=== PATIENT | female | born 1980 | race Caucasian/White ===

== ENCOUNTER 2017-02-26 09:25 | Day surgery (SDC) | payer BC, OTHER ==
[2017-02-26 10:31] VITALS: BP 128/83; TEMP 97.9; BMI 37.0
[2017-02-26 11:20] LABS: Bilirubin Negative (Negative); Blood, Urine Trace (Negative); Glucose, Urine (Dipstick) Negative (Negative); Ketone, Urine Trace mg/dL (Negative); Nitrite Negative (Negative); Protein, Urine (Dipstick) Negative (Neg-Trace); Urobilinogen 0.2 mg/dL (0.2-1.0)
[2017-02-26 11:28] LABS: #Eosinphils 0.1 thou/uL (0.0-0.7); #Lymphocytes 1.7 thou/uL (1.20-3.40); #Monocytes 1.1 thou/uL (0.11-0.59); #Neutrophils 12.6 thou/uL (1.40-6.50); %Basophils 0.3 % (0.0-1.0); %Eosinophils 0.6 % (0.0-10.0); %Lymphocytes 11.2 % (21.0-51.0); %Monocytes 7.2 % (0.0-10.0); Hematocrit 30.8 % (36.0-47.0); Mean Platelet Volume 8.1 fL (7.4-10.4); Red Blood Cell (RBC) Count 3.86 mill/uL (4.20-5.40); White Blood Cell (WBC) Count 15.6 thou/uL (4.8-10.8)
[2017-02-26 11:28] LABS: Bacteria/HPF Rare-Few HPF (None Seen); Hyaline Casts/LPF NONE SEEN LPF (0-3 Hyaline); RBC/HPF 0-3 HPF (0-3); Squamous Epithelial 0-3 HPF (0-3); WBC/HPF None Seen HPF (0-3)
[2017-02-26 11:54] LABS: ALT (SGPT) 13 U/L (8-55); AST (SGOT) 16 U/L (5-34); Alkaline Phosphatase 132 U/L (40-150); Anion Gap 9 mmol/L (10-20); BUN (Urea Nitrogen) 6 mg/dL (7.0-18.7); Bilirubin, Total 0.3 mg/dL (0.2-1.2); Calc. Creatinine Clearance 197 mL/min (70-130); Calcium 9.1 mg/dL (7.8-10.44); Carbon Dioxide 23 mmol/L (22-29); Chloride 107 mmol/L (98-107); Estimated GFR-MDRD Greater than 90; Globulin 2.8 g/dL (2.4-3.5); Protein, Total 5.9 g/dL (6.0-8.3)
== END 2017-02-26 11:30 | disposition home or self-care (01) ==
LOC: L&D/OP 09:25
PROVIDERS: ATTEND Obstetrics & Gynecology
DX: O99.89 Other specified diseases and conditions complicating pregnancy, childbirth and the puerperium (principal); R03.0 Elevated blood-pressure reading, without diagnosis of hypertension; O12.00 Gestational edema, unspecified trimester; Z79.82 Long term (current) use of aspirin; Z79.899 Other long term (current) drug therapy; Z88.1 Allergy status to other antibiotic agents
CPT/HCPCS: 36415; 80053; 81003; 81015; 85025

== ENCOUNTER 2017-03-16 21:00 | Inpatient (IN) | payer BC, OTHER ==
[2017-03-16] MEDS ORDERED: LR 500 ML/Oxytocin 10 units 500 ML IV SCH (21:30)
[2017-03-16] MEDS ORDERED: LR / Pitocin 40 units/1000 ml 1,000 ML IV PRN (21:30)
[2017-03-16] MEDS ORDERED: Acetaminophen/Codeine 30-300mg Tablet PO PRN ×2 (21:30)
[2017-03-16] MEDS ORDERED: Ibuprofen 800 MG TAB PO PRN (21:30)
[2017-03-16] MEDS ORDERED: Lidocaine 1% (PF) 30 ML VIAL SC PRN (21:30)
[2017-03-16] MEDS ORDERED: Promethazine HCl 25 MG/ML VIAL IM PRN (21:30)
[2017-03-16] MEDS ORDERED: Ondansetron HCl/PF 4 MG/2 ML Vial IVP PRN (21:30)
[2017-03-16] MEDS: Lactated Ringer's 1,000 ML IV SCH (21:30)
[2017-03-16 21:50] VITALS: BMI 37.9
[2017-03-16] MEDS: LR 500 ML/Oxytocin 10 units 500 ML IV SCH (22:20)
[2017-03-16 22:30] LABS: Hematocrit 32.2 % (36.0-47.0); Mean Platelet Volume 8.5 fL (7.4-10.4); Red Blood Cell (RBC) Count 3.84 mill/uL (4.20-5.40); White Blood Cell (WBC) Count 13.3 thou/uL (4.8-10.8)
[2017-03-16 22:51] LABS: ALT (SGPT) 14 U/L (8-55); AST (SGOT) 16 U/L (5-34); Alkaline Phosphatase 147 U/L (40-150); Anion Gap 17 mmol/L (10-20); BUN (Urea Nitrogen) 9 mg/dL (7.0-18.7); Bilirubin, Total 0.3 mg/dL (0.2-1.2); Calc. Creatinine Clearance 167 mL/min (70-130); Calcium 8.7 mg/dL (7.8-10.44); Carbon Dioxide 16 mmol/L (22-29); Chloride 107 mmol/L (98-107); Estimated GFR-MDRD Greater than 90; Globulin 2.4 g/dL (2.4-3.5); Protein, Total 5.5 g/dL (6.0-8.3)
[2017-03-17] MEDS ORDERED: diphenhydrAMINE 50 MG/ML VIAL ONE (03:15)
[2017-03-17] MEDS ORDERED: Fentanyl 4 mcg/Marc 0.1% Cadd 100 ML ONE (05:21)
[2017-03-17] MEDS: Lactated Ringer's 1,000 ML IV SCH ×3 (06:02→16:24)
[2017-03-17] MEDS ORDERED: ePHEDrine/0.9% NaCl/PF SYRINGE 50 mg/10 ml SLOW IVP PRN (06:21)
[2017-03-17] MEDS ORDERED: Ondansetron HCl/PF 4 MG/2 ML Vial IVP PRN ×2 (06:21→22:32)
[2017-03-17] MEDS ORDERED: Acetaminophen 325 MG TAB PO PRN (06:21)
[2017-03-17] MEDS ORDERED: Naloxone HCl 0.4 mg/ml Vial IVP PRN ×2 (06:21)
[2017-03-17] MEDS ORDERED: Promethazine HCl 25 MG/ML VIAL IM PRN (06:21)
[2017-03-17] MEDS ORDERED: Eucerin (Mineral Oil/Petrolatum,White) 30 gm Jar TOP PRN (06:21)
[2017-03-17] MEDS ORDERED: Lactated Ringer's 500 ML IV PRN (06:21)
[2017-03-17] MEDS ORDERED: diphenhydrAMINE 50 MG/ML VIAL IVP PRN (06:21)
[2017-03-17] MEDS ORDERED: Communication Order-Pharmacy FS SCH (06:30)
--- NOTE | 2017-03-17 08:35 | PDOC.LDHP ---
Labor and Delivery H&P Chief complaint: scheduled induction (for PIH 37 weeks) HPI: Pt is a 36yo G1 here for scheduled IOL for PIH without severe features managed outpt since 33 weeks. Also A2GDM this preg. Current gestational age (weeks): 37 Due date: 04/05/17 Dating criteria: last menstrual period, first trimester ultrasound Grav: 1 Para: 0 Current complications: gestational diabetes (metformin 500mg QPM) Abnormal US findings: No Current medications: pre-alfred vitamins, other (metformin 500mg QPM) Previous surgical history: other (bunionectomy) Allergies/Adverse Reactions: Allergies Allergy/AdvReac Type Severity Reaction Status Date / Time doxycycline Allergy Verified 03/16/17 21:40 minocycline Allergy Verified 03/16/17 21:40 Social history: none - Physical Exam Abnormal vital signs: systolic 140-160, isolated severe range noted over night General: NAD, resting Heart: RRR Lungs: nonlabored breathing Abdomen: gravid Extremeties: pitting edema (+1) FHT: category 1 [place] contractions every: 3 - Vaginal Exam cm dilated: 5 Effacement: 50% Station: -1 - OB Labs Blood type: A RH: negative Antibody Screen: negative HIV: negative RPR: negative HEPSAg: negative 1 hour GCT: positive 3 hour GTT: positive GBS: negative Rubella: non-immune - Assessment L&D Assessment: medically indicated induction - Plan Plan: admit to L&D, cervical ripening, labor augmentation if indicated, informed consent obtained, anesthesia consult for pain management -: A/P: 36yo G1 @ 37.2 IOL for PIH. S/P Cook Balloon placement, removal, and AROM. Pitocin for IOL. FHT reassuring.
[2017-03-17] MEDS ORDERED: Bupivacaine/Epinephrine 0.25% 30 ML VIAL ONE (11:11)
[2017-03-17] MEDS ORDERED: Lidocaine 2% MPF 10 ML AMP (For Epidural Use) ONE (11:11)
[2017-03-17] MEDS: Fentanyl 4mcg/Marcaine 0.1% Cassette 100 ML EPIDURAL SCH ×3 (11:33→20:09)
--- NOTE | 2017-03-17 12:59 | PDOC.LDPN ---
Labor & Delivery Progress Note - Subjective Subjective: comfortable - Objective Vital signs reviewed and normal: yes General: breathing through contractions Dilation: 5 Effacement: 90% Station: -1 FHT: category 1 [place] contractions every: 2 - Assessment (1) 37 weeks gestation of Code(s): Z3A.37 - 37 WEEKS GESTATION OF Current Visit: Yes Status : Acute (2) Preeclampsia Code(s): O14.90 - UNSPECIFIED PRE-ECLAMPSIA, UNSPECIFIED TRIMESTER Current Visit: Yes Status: Acute Plan: pitocin for augmentation
[2017-03-17] MEDS: LR 500 ML/Oxytocin 10 units 500 ML IV SCH (14:59)
--- NOTE | 2017-03-17 16:57 | PDOC.LDPN ---
Labor & Delivery Progress Note - Subjective Subjective: comfortable - Objective Vital signs reviewed and normal: yes (occ mild range) General: resting Dilation: 7 Effacement: 90% Station: -1 FHT: category 1 [place] contractions every: 3 - Assessment (1) 37 weeks gestation of Code(s): Z3A.37 - 37 WEEKS GESTATION OF Current Visit: Yes Status : Acute (2) Preeclampsia Code(s): O14.90 - UNSPECIFIED PRE-ECLAMPSIA, UNSPECIFIED TRIMESTER Current Visit: Yes Status: Acute Plan: continue plan of care, pitocin for augmentation -: A/P: IOL @ 37 weeks for PIH. Slow cervical change but pitocin turned off for prolonged deceleration approx 1600, notified when presenting to unit for pt exam and eval at 1700. FHT now reassuring, pitocin at 10mu/min but ctx not adequate at this time, were prior. Continue plan of care, if pitocin DC'd again due to distress and remote from delivery CS may be indicated.
[2017-03-17] MEDS: LR / Pitocin 40 units/1000 ml 1,000 ML IV SCH (22:02)
--- NOTE | 2017-03-17 22:19 | PDOC.OPDEL ---
OB Operative/Delivery Note Delivery Dr/Surgeon: Yury Pre-Delivery Diagnosis: medically indicated induction (for preeclampsia) Weeks gestation: 37 Anesthesia: epidural - Findings A Sex: male Weight: 8 lb 10 oz - 1 min: 8 - 5 min: 9 - Additional Findings/Plan Placenta delivered: spontaneous Repaired Obstetrical Laceration: 2nd degree Estimated blood loss: 300ml Compilations/Other Findings: Loose nuchal reduced at the perineum, shoulder dystocia resolved w suprapubic pressure and McRobert's maneuver->delivery of anterior (left) shoulder, good movement of both UE after delivery Post delivery plan: routine recovery
[2017-03-17] MEDS ORDERED: Milk Of Magnesia 30 ML UDCUP PO PRN (22:32)
[2017-03-17] MEDS ORDERED: Lanolin Ointment 7 GM TUBE TOP PRN (22:32)
[2017-03-17] MEDS ORDERED: Preparation H Ointment 28 GM TUBE PR PRN (22:32)
[2017-03-17] MEDS ORDERED: Acetaminophen/Codeine 30-300mg Tablet PO PRN ×2 (22:32)
[2017-03-17] MEDS ORDERED: diphenhydrAMINE 25 MG CAP PO PRN (22:32)
[2017-03-17] MEDS ORDERED: Bisacodyl 10 MG SUPP PR PRN (22:32)
[2017-03-17] MEDS ORDERED: Benzocaine/Menthol 20-0.5% 60 ML CAN TOP PRN (22:32)
[2017-03-18] MEDS: Ibuprofen 800 MG TAB PO SCH ×4 (02:07→23:54)
[2017-03-18] MEDS: LR / Pitocin 40 units/1000 ml 1,000 ML IV SCH (02:07)
[2017-03-18 05:47] LABS: Hematocrit 31.3 % (36.0-47.0); Mean Platelet Volume 8.3 fL (7.4-10.4); Red Blood Cell (RBC) Count 3.68 mill/uL (4.20-5.40); White Blood Cell (WBC) Count 21.7 thou/uL (4.8-10.8)
[2017-03-18] MEDS: Ferrous Sulfate 325 MG TAB PO SCH ×2 (08:37→17:24)
[2017-03-18] MEDS: Prenatal Vitamin 1 TAB PO SCH (08:38)
[2017-03-18] MEDS: Docusate Calcium (SURFAK) 240 MG CAP PO SCH ×2 (08:38→21:10)
[2017-03-18] MEDS ORDERED: Adacel (T-DAP) 0.5 ML VIAL IM ONE (09:00)
--- NOTE | 2017-03-18 09:01 | PDOC.PP ---
Post Progress Note Post Day #: 1 Subjective: Doing well, no dizziness, SOB, chest pain, ambulating w/o difficulty. PO intake tolerated: yes Flatus: yes Ambulation: yes Vital Signs (12 hours) Temp Pulse Resp BP 03/18/17 08:54 97.8 F 94 20 120/77 03/18/17 04:35 98.1 F 97 16 120/75 03/18/17 01:50 113 H 16 133/80 03/18/17 00:50 98.1 F 94 16 136/86 Weight Weight 214 lb - Physical Examination General: NAD Respiratory: non-labored breathing Abdominal: no distention Fundus firm & at: below umb Extremities: negative homans (B) Skin: no rash Neurological: no gross focal deficits Psychiatric: A&Ox3, normal affect Result Diagrams: 03/18/17 05:13 03/16/17 22:04 Additional Labs: Post Labs Blood Type A POSITIVE 03/16/17 22:04 Hep Bs Antigen Non-Reactive S/CO (NonReactive) 03/16/17 22:04 (1) 37 weeks gestation of Code(s): Z3A.37 - 37 WEEKS GESTATION OF Status: Acute (2) Preeclampsia Code(s): O14.90 - UNSPECIFIED PRE-ECLAMPSIA, UNSPECIFIED TRIMESTER Status: Acute - Assessment/Plan PPD1 sp IOL for PIH without severe features. Pt doing well. Discussed that I was notified this AM that EKG was ordered. Pt reassured that heart murmurs are physiologic findings during and immediately after delivery. PACs were reported on EKG per nurse report- discussed w pt that with increased preload/filling at atrium as she shifts fluid 2/2 delivery and preeclampsia that this may occur and will be reevaluated immediately if any symptoms develop or changes in VS that are concerning are noted. Pt had no questions or concerns regarding EKG at this time.
--- NOTE | 2017-03-18 21:07 | EKG ---
Test Reason : Blood Pressure : / mmHG Vent. Rate : 095 BPM Atrial Rate : 095 BPM P-R Int : 134 ms QRS Dur : 090 ms QT Int : 334 ms P-R-T Axes : 071 054 065 degrees QTc Int : 419 ms Sinus rhythm with Premature atrial complexes with Abberant conduction Otherwise normal ECG No previous ECGs available Confirmed by DR. Cristian STINSON MD ([id number]) on 03/18/2017 9:06:50 PM Referred By: Confirmed By:DR. Cristian STINSON MD
[2017-03-19] MEDS: Ibuprofen 800 MG TAB PO SCH (07:11)
[2017-03-19 07:57] VITALS: BP 132/84; TEMP 98.6
--- NOTE | 2017-03-19 08:32 | PDOC.PP ---
Post Progress Note Post Day #: 2 Subjective: doing well, no PIH sx, no palpitations or SOB no CP, ready for DC PO intake tolerated: yes Flatus: yes Ambulation: yes Vital Signs (12 hours) Temp Pulse Resp BP 03/19/17 07:53 98.6 F 87 18 132/84 03/19/17 07:30 98.2 F 107 H 20 03/18/17 20:55 98.2 F 107 H 20 136/75 Weight Weight 214 lb - Physical Examination General: NAD Respiratory: non-labored breathing Abdominal: no distention Fundus firm & at: umb below Extremities: negative homans (B) Skin: no rash Psychiatric: A&Ox3, normal affect Result Diagrams: 03/18/17 05:13 03/16/17 22:04 Additional Labs: Post Labs Blood Type A POSITIVE 03/16/17 22:04 Hep Bs Antigen Non-Reactive S/CO (NonReactive) 03/16/17 22:04 (1) 37 weeks gestation of Code(s): Z3A.37 - 37 WEEKS GESTATION OF Status: Acute (2) Preeclampsia Code(s): O14.90 - UNSPECIFIED PRE-ECLAMPSIA, UNSPECIFIED TRIMESTER Status: Acute - Assessment/Plan PPD2 sp IOL for PIH, BP WNL, no si/sx of worsening disease. Asx PACs noted on EKG ordered by nursing staff, discussed no indication for repeat at this time. Plan for DC later today, pt will check BP home daily and call if elevated.
[2017-03-19] MEDS: Ferrous Sulfate 325 MG TAB PO SCH (08:35)
[2017-03-19] MEDS: Prenatal Vitamin 1 TAB PO SCH (08:36)
[2017-03-19] MEDS: Docusate Calcium (SURFAK) 240 MG CAP PO SCH (08:36)
== END 2017-03-19 13:30 | disposition home or self-care (01) | DRG 775 ==
LOC: L&D 21:16 → 3SW 03-18 02:11
PROVIDERS: ADMIT Obstetrics & Gynecology; ATTEND Obstetrics & Gynecology
PROC: 10907ZC Drainage of Amniotic Fluid, Therapeutic from Products of Conception, Via Natural or Artificial Opening (ICD-10-PCS; 2017-03-16)
PROC: 0U7C7ZZ Dilation of Cervix, Via Natural or Artificial Opening (ICD-10-PCS; 2017-03-16)
PROC: 3E0P3VZ Introduction of Hormone into Female Reproductive, Percutaneous Approach (ICD-10-PCS; 2017-03-16)
PROC: 10E0XZZ Delivery of Products of Conception, External Approach (ICD-10-PCS; principal; 2017-03-17)
PROC: 0KQM0ZZ Repair Perineum Muscle, Open Approach (ICD-10-PCS; 2017-03-17)
DX: O14.94 Unspecified pre-eclampsia, complicating childbirth (principal); O24.425 Gestational diabetes mellitus in childbirth, controlled by oral hypoglycemic drugs; O70.1 Second degree perineal laceration during delivery; O76 Abnormality in fetal heart rate and rhythm complicating labor and delivery; O66.0 Obstructed labor due to shoulder dystocia; O69.81X0 Labor and delivery complicated by cord around neck, without compression, not applicable or unspecified; Z37.0 Single live birth; Z3A.37 37 weeks gestation of pregnancy
CPT/HCPCS: 36415; 36416; 80053; 85027; 86780; 86850; 86900; 86901; 87340; 87389; 93005; 93010; C1726; J0595; J1200; J2001; J2405; J7120

== ENCOUNTER 2021-09-28 10:26 | Outpatient (CLI) | payer BC, OTHER | END 2021-09-28 10:27 | disposition home or self-care (01) | LOC: BICRAD 10:26 | PROVIDERS: ATTEND Nurse Practitioner Family | DX: R05.3 Chronic cough (principal) | CPT/HCPCS: 71046 ==

== ENCOUNTER 2024-01-26 08:34 | Outpatient (CLI) | payer OTHER | END 2024-01-26 08:35 | disposition home or self-care (01) | LOC: MRI 08:34 | PROVIDERS: ATTEND Family Medicine Sports Medicine | DX: M70.62 Trochanteric bursitis, left hip (principal); S76.812A Strain of other specified muscles, fascia and tendons at thigh level, left thigh, initial encounter; S73.102A Unspecified sprain of left hip, initial encounter; M21.952 Unspecified acquired deformity of left thigh; R60.0 Localized edema ==